=== PATIENT | male | born 1945 | race Caucasian/White ===

== ENCOUNTER 2017-01-06 20:59 | Emergency (ER) | payer SELFPAY ==
--- NOTE | ~2017-01-06 | EKG ---
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
[~2017-01-06 20:59] MED LIST: COUMADIN6 MG PO; FLEXERIL10 MG PO; HYDROCORTISON28.4 G6 TOP; LIPITOR40 MG PO; PAROXETINE HCL40 MG PO; PRILOSEC20 MG PO; REQUIP2 MG PO; TRAMADOL HCL50 M2 PO
== END 2017-01-13 13:13 | disposition home or self-care (01) ==
LOC: CED 20:59
DX: Z53.21 Procedure and treatment not carried out due to patient leaving prior to being seen by health care provider (principal)
CPT/HCPCS: 93005